=== PATIENT | male | born 1950 | race African-American/Black ===

== ENCOUNTER 2023-07-20 12:01 | Inpatient (IN) | payer OTHER ==
[~2023-07-20] VITALS: Ht 175.3 cm; Wt 53.0 kg
[2023-07-20] MEDS ORDERED: SODIUM CHLORIDE 0.9% 1,000 ML IV ONE (12:15)
[2023-07-20 13:24] LABS: Basophils # (auto) 0 10 ^3/uL (0-0.2); Basophils % (auto) 0.4 % (0.0-2.0); Eosinophils # (auto) 0 10 ^3/uL (0-0.8); Eosinophils % (auto) 0.5 % (0.0-7.0); Hematocrit 35.8 % (41.0-53.0); Hemoglobin 11.4 g/dL (13.5-17.5); Lymphocytes # (auto) 1.7 10 ^3/uL (0.4-5.4); Lymphocytes % (auto) 26.9 % (10.0-50.0); Mean Corpuscular Hemoglobin 31.7 pg (28.0-32.0); Mean Corpuscular Hgb Conc. 31.9 g/dL (32.0-36.0); Mean Corpuscular Volume 99.5 fL (80.0-100.0); Monocytes # (auto) 0.5 10 ^3/uL (0-1.3); Monocytes % (auto) 7.7 % (0.0-12.0); Neutrophils # (auto) 4.2 10 ^3/uL (1.6-8.6); Neutrophils % (auto) 64.5 % (37.0-80.0); Nucleated Red Blood Cells % 0.2 %; Red Cell Distribution Width 16.9 % (11.8-14.3); White Blood Cell 6.5 10^3/uL (4.4-10.8)
[2023-07-20 13:40] LABS: Alanine Aminotransferase 69 U/L (7-40); Albumin 3.4 g/dL (3.2-4.8); Alkaline Phosphatase 131 U/L (46-116); Anion Gap 8 (5-15); Aspartate Aminotransferase 47 U/L (13-40); BUN/Creatinine Ratio 26.4 (10.0-20.0); Blood Urea Nitrogen 19 mg/dL (9-23); Calcium 8.8 mg/dL (8.7-10.4); Carbon Dioxide 24 mmol/L (20-30); Chloride 104 mmol/L (98-107); Glucose 92 mg/dL (74-106); Lipase 33 U/L (12-53); Magnesium 1.9 mg/dL (1.6-2.6); Potassium 3.7 mmol/L (3.5-5.1); Sodium 136 mmol/L (136-145)
[2023-07-20 13:41] LABS: Bilirubin, Total 0.2 mg/dL (0.2-1.0); Total Protein 6.1 g/dL (5.7-8.2)
[2023-07-20] MEDS ORDERED: FUROSEMIDE 40 MG/4 ML VIAL IV ONE (15:00)
[2023-07-20] MEDS ORDERED: SERT-160 (15:42)
[2023-07-20] MEDS ORDERED: TRAZ-227 PO (15:42)
[2023-07-20] MEDS ORDERED: AMLO1TAB23 PO (15:42)
[2023-07-20] MEDS ORDERED: CLOP75TA70 PO (15:42)
[2023-07-20] MEDS ORDERED: CARV12.544 PO (15:42)
[2023-07-20] MEDS ORDERED: FOLI-119 PO (15:42)
[2023-07-20] MEDS ORDERED: HYDR12.55 PO (15:42)
[2023-07-20] MEDS ORDERED: PHEN1CAP60 PO (15:42)
[2023-07-20] MEDS ORDERED: ASPI81CH59 PO (15:42)
[2023-07-20] MEDS ORDERED: SERT-160 PO (15:42)
[2023-07-20] MEDS ORDERED: ACETAMINOPHEN 325 MG TAB PO PRN (15:45)
[2023-07-20] MEDS ORDERED: PANTOPRAZOLE 40 MG/10 ML VIAL INJ IV ONE (15:45)
[2023-07-20 21:00] VITALS: PULSE 75; RESP 12; O2SAT 98
[2023-07-20] MEDS: PHENYTOIN SODIUM 100 MG CAP PO SCH (22:00)
[2023-07-20] MEDS: ASCORBIC ACID 500 MG TAB PO SCH (23:05)
[2023-07-21] VITALS (7 sets, daily range): BP systolic 123–149; BP diastolic 73–98; PULSE 78–92; RESP 14–23; TEMP 97.6–99; O2SAT 97–100
[2023-07-21 05:38] LABS: Basophils # (auto) 0 10 ^3/uL (0-0.2); Basophils % (auto) 0.5 % (0.0-2.0); Eosinophils # (auto) 0 10 ^3/uL (0-0.8); Eosinophils % (auto) 0.5 % (0.0-7.0); Hematocrit 35.2 % (41.0-53.0); Hemoglobin 11.6 g/dL (13.5-17.5); Lymphocytes % (auto) 17.7 % (10.0-50.0); Mean Corpuscular Hemoglobin 32.1 pg (28.0-32.0); Mean Corpuscular Hgb Conc. 32.9 g/dL (32.0-36.0); Mean Corpuscular Volume 97.6 fL (80.0-100.0); Monocytes # (auto) 0.4 10 ^3/uL (0-1.3); Monocytes % (auto) 6.9 % (0.0-12.0); Neutrophils # (auto) 4.1 10 ^3/uL (1.6-8.6); Neutrophils % (auto) 74.4 % (37.0-80.0); Nucleated Red Blood Cells % 0.1 %; Red Blood Cells 3.61 10^6/uL (4.5-5.90); Red Cell Distribution Width 16.4 % (11.8-14.3); White Blood Cell 5.6 10^3/uL (4.4-10.8)
[2023-07-21 05:51] LABS: Alanine Aminotransferase 58 U/L (7-40); Albumin 3.4 g/dL (3.2-4.8); Alkaline Phosphatase 123 U/L (46-116); Anion Gap 13 (5-15); Aspartate Aminotransferase 38 U/L (13-40); Blood Urea Nitrogen 11 mg/dL (9-23); Calcium 9.3 mg/dL (8.5-10.1); Carbon Dioxide 19 mmol/L (20-30); Chloride 106 mmol/L (98-107); Glucose 83 mg/dL (74-106); Potassium 3.6 mmol/L (3.5-5.1); Sodium 138 mmol/L (136-145)
[2023-07-21 05:52] LABS: Bilirubin, Total 0.2 mg/dL (0.2-1.0); Total Protein 6.2 g/dL (5.7-8.2)
[2023-07-21] MEDS: PHENYTOIN SODIUM 100 MG CAP PO SCH ×3 (06:00→22:58)
[2023-07-21 07:33] LABS: Urine Bacteria MANY /hpf (None Seen); Urine Blood 3+ /uL (Negative); Urine Clarity CLOUDY (Clear); Urine Color Yellow (Yellow); Urine Mucus FEW (None Seen); Urine Protein, UAD 1+ (Negative); Urine Specific Gravity 1.021 (1.001-1.035); Urine Urobilinogen Normal (Negative); Urine WBC 335 /hpf (0 - 3); Urine WBC Clumps PRESENT /hpf (None Seen); Urine pH 5.5 (5.0-8.0)
[2023-07-21] MEDS ORDERED: ASPIRIN LOW PO SCH (10:00)
[2023-07-21] MEDS: PANTOPRAZOLE 40 MG/10 ML VIAL INJ IV SCH (11:14)
[2023-07-21] MEDS: ZINC SULFATE 220mg CAP or TAB PO SCH (11:15)
[2023-07-21] MEDS: FOLIC ACID 1 MG TAB PO SCH (11:15)
[2023-07-21] MEDS: MULTIPLE VITAMIN TAB PO SCH (11:16)
[2023-07-21] MEDS: CLOPIDOGREL BISULFATE 75 MG TAB PO SCH (11:16)
[2023-07-21] MEDS: SERTRALINE HCL 50 MG TAB PO SCH (11:16)
[2023-07-21] MEDS: ASCORBIC ACID 500 MG TAB PO SCH ×2 (11:16→22:59)
[2023-07-21] MEDS: ENOXAPARIN SOD 40 MG/0.4 ML SYRINGE SC SCH (11:17)
[2023-07-21] MEDS ORDERED: ASPirin-EC 81 mg tab PO ONE (11:20)
[2023-07-21] MEDS ORDERED: cefTRIAXone 1GM/50ML D5W 50 ML IV ONE (13:00)
[2023-07-21] MEDS: METOPROLOL TARTRATE 25 MG TAB PO SCH (22:59)
[2023-07-21] MEDS: SACUBITRIL-VALSARTAN 24mg/26mg TAB PO SCH (22:59)
[2023-07-22 05:28] VITALS: BP 137/89; PULSE 80; RESP 17; TEMP 97.8; O2SAT 100
[2023-07-22] MEDS: EMPAGLIFLOZIN 10 MG TAB PO SCH (06:38)
[2023-07-22] MEDS: PHENYTOIN SODIUM 100 MG CAP PO SCH ×3 (06:38→22:19)
[2023-07-22 08:00] VITALS: PULSE 76; RESP 16
[2023-07-22 10:15] VITALS: BP 130/87; PULSE 76; RESP 16; TEMP 98.3; O2SAT 99
[2023-07-22] MEDS: cefTRIAXone 1GM/50ML D5W 50 ML IV SCH (11:54)
[2023-07-22] MEDS: PANTOPRAZOLE 40 MG/10 ML VIAL INJ IV SCH (11:55)
[2023-07-22] MEDS: ASCORBIC ACID 500 MG TAB PO SCH ×2 (11:55→22:19)
[2023-07-22] MEDS: SERTRALINE HCL 50 MG TAB PO SCH (11:56)
[2023-07-22] MEDS: METOPROLOL TARTRATE 25 MG TAB PO SCH ×2 (11:56→22:19)
[2023-07-22] MEDS: FOLIC ACID 1 MG TAB PO SCH (11:57)
[2023-07-22] MEDS: SACUBITRIL-VALSARTAN 24mg/26mg TAB PO SCH ×2 (11:57→23:33)
[2023-07-22] MEDS: MULTIPLE VITAMIN TAB PO SCH (11:58)
[2023-07-22] MEDS: ASPirin 81 mg TAB PO SCH (11:58)
[2023-07-22] MEDS: ZINC SULFATE 220mg CAP or TAB PO SCH (11:58)
[2023-07-22] MEDS: FUROSEMIDE 20 MG TAB PO SCH (11:59)
[2023-07-22] MEDS: CLOPIDOGREL BISULFATE 75 MG TAB PO SCH (11:59)
[2023-07-22] MEDS: ENOXAPARIN SOD 40 MG/0.4 ML SYRINGE SC SCH (11:59)
[2023-07-22] MEDS: SPIRONOLACTONE 25 MG TAB PO SCH (12:11)
[2023-07-22 13:05] VITALS: BP 148/93; PULSE 85; RESP 17; TEMP 98.3; O2SAT 98
[2023-07-22 20:00] VITALS: BP 124/85; PULSE 72; PULSE 81; TEMP 36.8
[2023-07-22 22:00] VITALS: BP 159/92; PULSE 99; RESP 18; TEMP 98.6; O2SAT 100
[2023-07-23] MEDS: PHENYTOIN SODIUM 100 MG CAP PO SCH ×3 (06:48→22:05)
[2023-07-23] MEDS: EMPAGLIFLOZIN 10 MG TAB PO SCH (06:48)
[2023-07-23 08:00] VITALS: BP 145/90; PULSE 85; RESP 20; TEMP 98.4; O2SAT 100
[2023-07-23] MEDS: cefTRIAXone 1GM/50ML D5W 50 ML IV SCH (08:05)
[2023-07-23] MEDS: FUROSEMIDE 20 MG TAB PO SCH (10:00)
[2023-07-23] MEDS: METOPROLOL TARTRATE 25 MG TAB PO SCH ×2 (11:33→22:05)
[2023-07-23] MEDS: ASPirin 81 mg TAB PO SCH (11:33)
[2023-07-23] MEDS: ZINC SULFATE 220mg CAP or TAB PO SCH (11:34)
[2023-07-23] MEDS: SACUBITRIL-VALSARTAN 24mg/26mg TAB PO SCH ×2 (11:34→22:05)
[2023-07-23] MEDS: MULTIPLE VITAMIN TAB PO SCH (11:35)
[2023-07-23] MEDS: ASCORBIC ACID 500 MG TAB PO SCH ×2 (11:35→22:05)
[2023-07-23] MEDS: FOLIC ACID 1 MG TAB PO SCH (11:36)
[2023-07-23] MEDS: SPIRONOLACTONE 25 MG TAB PO SCH (11:36)
[2023-07-23] MEDS: SERTRALINE HCL 50 MG TAB PO SCH (11:37)
[2023-07-23] MEDS: PANTOPRAZOLE 40 MG/10 ML VIAL INJ IV SCH (11:38)
[2023-07-23] MEDS: CLOPIDOGREL BISULFATE 75 MG TAB PO SCH (11:38)
[2023-07-23] MEDS: ENOXAPARIN SOD 40 MG/0.4 ML SYRINGE SC SCH (11:39)
[2023-07-23] MEDS: Ensure HIGH Protein Vanilla 8oz Bottle PO SCH ×2 (12:00→18:00)
[2023-07-23 13:00] VITALS: BP 126/89; PULSE 93; RESP 20; TEMP 98.5; O2SAT 100
[2023-07-23 16:54] VITALS: BP 143/95; PULSE 100; RESP 20; TEMP 98.4; O2SAT 92
[2023-07-23 21:42] VITALS: BP 145/87; PULSE 91; RESP 19; TEMP 97.8; O2SAT 94
[2023-07-23 21:49] VITALS: BP 155/90; PULSE 92; RESP 18; TEMP 98.3; O2SAT 100
[2023-07-23] MEDS ORDERED: SACUBITRIL-VALSARTAN 24mg/26mg TAB PO ONE (22:02)
[2023-07-24 05:00] VITALS: BP 148/77; PULSE 82; RESP 19; TEMP 98.5; O2SAT 94
[2023-07-24] MEDS: PHENYTOIN SODIUM 100 MG CAP PO SCH ×3 (06:34→21:35)
[2023-07-24] MEDS: EMPAGLIFLOZIN 10 MG TAB PO SCH (06:35)
[2023-07-24] MEDS: Ensure HIGH Protein Vanilla 8oz Bottle PO SCH ×3 (08:00→18:00)
[2023-07-24 09:00] VITALS: BP 137/96; PULSE 82; RESP 18; TEMP 98.3; O2SAT 100
[2023-07-24] MEDS: cefTRIAXone 1GM/50ML D5W 50 ML IV SCH (09:00)
[2023-07-24] MEDS: METOPROLOL TARTRATE 25 MG TAB PO SCH ×2 (10:00→21:35)
[2023-07-24] MEDS: ENOXAPARIN SOD 40 MG/0.4 ML SYRINGE SC SCH (10:00)
[2023-07-24] MEDS: FOLIC ACID 1 MG TAB PO SCH (10:00)
[2023-07-24] MEDS: FUROSEMIDE 20 MG TAB PO SCH (10:00)
[2023-07-24] MEDS: ASCORBIC ACID 500 MG TAB PO SCH ×2 (10:00→21:35)
[2023-07-24] MEDS: SACUBITRIL-VALSARTAN 24mg/26mg TAB PO SCH ×2 (10:00→21:35)
[2023-07-24] MEDS: MULTIPLE VITAMIN TAB PO SCH (10:00)
[2023-07-24] MEDS: CLOPIDOGREL BISULFATE 75 MG TAB PO SCH (10:00)
[2023-07-24] MEDS: SPIRONOLACTONE 25 MG TAB PO SCH (10:00)
[2023-07-24] MEDS: SERTRALINE HCL 50 MG TAB PO SCH (10:00)
[2023-07-24] MEDS: ASPirin 81 mg TAB PO SCH (10:00)
[2023-07-24] MEDS: ZINC SULFATE 220mg CAP or TAB PO SCH (10:00)
[2023-07-24] MEDS: PANTOPRAZOLE 40 MG/10 ML VIAL INJ IV SCH (10:00)
[2023-07-24 10:25] LABS: Hepatitis B Surface Antigen Negative (Negative)
[2023-07-24 10:45] LABS: Hepatitis A Ab IgM Negative
[2023-07-24 10:46] LABS: Hepatitis B Core IgM Negative
[2023-07-24 10:47] LABS: Hepatitis C Antibody Negative (Negative)
[2023-07-24 13:00] VITALS: BP 120/80; PULSE 93; RESP 18; TEMP 99; O2SAT 99
[2023-07-24 17:00] VITALS: BP 144/88; PULSE 83; RESP 18; TEMP 98.6; O2SAT 100
[2023-07-24 19:40] VITALS: PULSE 80
[2023-07-24 22:00] VITALS: BP 108/75; PULSE 90; RESP 18; TEMP 97.7; O2SAT 95
[2023-07-25 05:00] VITALS: BP 129/77; PULSE 79; RESP 16; TEMP 98.1; O2SAT 98
[2023-07-25] MEDS: EMPAGLIFLOZIN 10 MG TAB PO SCH (06:08)
[2023-07-25] MEDS: PHENYTOIN SODIUM 100 MG CAP PO SCH ×3 (06:08→21:09)
[2023-07-25] MEDS: Ensure HIGH Protein Vanilla 8oz Bottle PO SCH ×3 (08:18→18:00)
[2023-07-25] MEDS: cefTRIAXone 1GM/50ML D5W 50 ML IV SCH (08:18)
[2023-07-25 09:00] VITALS: BP 108/76; PULSE 78; RESP 19; TEMP 98.8; O2SAT 96
[2023-07-25] MEDS: ENOXAPARIN SOD 40 MG/0.4 ML SYRINGE SC SCH (10:00)
[2023-07-25] MEDS: SPIRONOLACTONE 25 MG TAB PO SCH (10:00)
[2023-07-25] MEDS: MULTIPLE VITAMIN TAB PO SCH (10:00)
[2023-07-25] MEDS: CLOPIDOGREL BISULFATE 75 MG TAB PO SCH (10:00)
[2023-07-25] MEDS: SACUBITRIL-VALSARTAN 24mg/26mg TAB PO SCH ×2 (10:00→21:09)
[2023-07-25] MEDS: ASCORBIC ACID 500 MG TAB PO SCH ×2 (10:00→21:09)
[2023-07-25] MEDS: METOPROLOL TARTRATE 25 MG TAB PO SCH ×2 (10:00→21:09)
[2023-07-25] MEDS: ZINC SULFATE 220mg CAP or TAB PO SCH (10:00)
[2023-07-25] MEDS: PANTOPRAZOLE 40 MG/10 ML VIAL INJ IV SCH (10:00)
[2023-07-25] MEDS: FUROSEMIDE 20 MG TAB PO SCH (10:00)
[2023-07-25] MEDS: SERTRALINE HCL 50 MG TAB PO SCH (10:00)
[2023-07-25] MEDS: ASPirin 81 mg TAB PO SCH (10:00)
[2023-07-25] MEDS: FOLIC ACID 1 MG TAB PO SCH (10:00)
[2023-07-25 13:00] VITALS: BP 108/72; PULSE 78; RESP 18; TEMP 98.4; O2SAT 100
[2023-07-25] MEDS: MEROPENEM 1GM IVPB 100 ML IV SCH ×2 (14:07→23:02)
[2023-07-25 17:00] VITALS: BP 110/77; PULSE 79; RESP 18; TEMP 98.4; O2SAT 94
[2023-07-25 20:00] VITALS: PULSE 80
[2023-07-25] MEDS: LINEZOLID 600MG/300ML 300 ML IV SCH (21:08)
[2023-07-25 22:00] VITALS: BP 99/62; PULSE 93; RESP 14; TEMP 99; O2SAT 98
[2023-07-26] VITALS (7 sets, daily range): BP systolic 106–118; BP diastolic 68–79; PULSE 75–101; RESP 14–19; TEMP 97.9–98.9; O2SAT 94–98
[2023-07-26] MEDS: MEROPENEM 1GM IVPB 100 ML IV SCH ×2 (06:23→15:45)
[2023-07-26] MEDS: EMPAGLIFLOZIN 10 MG TAB PO SCH (06:23)
[2023-07-26] MEDS: PHENYTOIN SODIUM 100 MG CAP PO SCH ×3 (06:23→21:54)
[2023-07-26] MEDS: Ensure HIGH Protein Vanilla 8oz Bottle PO SCH ×3 (08:30→18:38)
[2023-07-26] MEDS: SERTRALINE HCL 50 MG TAB PO SCH (10:01)
[2023-07-26] MEDS: FOLIC ACID 1 MG TAB PO SCH (10:01)
[2023-07-26] MEDS: ENOXAPARIN SOD 40 MG/0.4 ML SYRINGE SC SCH (10:01)
[2023-07-26] MEDS: LINEZOLID 600MG/300ML 300 ML IV SCH ×2 (10:01→21:31)
[2023-07-26] MEDS: PANTOPRAZOLE 40 MG/10 ML VIAL INJ IV SCH (10:01)
[2023-07-26] MEDS: ASPirin 81 mg TAB PO SCH (10:01)
[2023-07-26] MEDS: ZINC SULFATE 220mg CAP or TAB PO SCH (10:01)
[2023-07-26] MEDS: FUROSEMIDE 20 MG TAB PO SCH (10:02)
[2023-07-26] MEDS: SACUBITRIL-VALSARTAN 24mg/26mg TAB PO SCH ×2 (10:02→21:31)
[2023-07-26] MEDS: CLOPIDOGREL BISULFATE 75 MG TAB PO SCH (10:02)
[2023-07-26] MEDS: ASCORBIC ACID 500 MG TAB PO SCH ×2 (10:02→21:30)
[2023-07-26] MEDS: MULTIPLE VITAMIN TAB PO SCH (10:02)
[2023-07-26] MEDS: METOPROLOL TARTRATE 25 MG TAB PO SCH ×2 (10:03→21:31)
[2023-07-26] MEDS: SPIRONOLACTONE 25 MG TAB PO SCH (10:14)
[2023-07-26] MEDS ORDERED: CATHFLO ACTIVASE (ALTEPLASE) 2 MG VIAL IV ONE (11:00)
[2023-07-26 14:54] LABS: COVID19 ANTIGEN SOFIA FIA NEGATIVE (NEGATIVE)
[2023-07-27] VITALS (7 sets, daily range): BP systolic 105–120; BP diastolic 68–82; PULSE 73–110; RESP 14–22; TEMP 97.9–99; O2SAT 94–98
[2023-07-27] MEDS: MEROPENEM 1GM IVPB 100 ML IV SCH ×4 (00:37→23:29)
[2023-07-27] MEDS: EMPAGLIFLOZIN 10 MG TAB PO SCH (06:30)
[2023-07-27] MEDS: PHENYTOIN SODIUM 100 MG CAP PO SCH ×3 (06:30→22:00)
[2023-07-27] MEDS: Ensure HIGH Protein Vanilla 8oz Bottle PO SCH ×3 (08:00→18:17)
[2023-07-27] MEDS: ZINC SULFATE 220mg CAP or TAB PO SCH (10:00)
[2023-07-27] MEDS: SERTRALINE HCL 50 MG TAB PO SCH (10:00)
[2023-07-27] MEDS: ENOXAPARIN SOD 40 MG/0.4 ML SYRINGE SC SCH (10:00)
[2023-07-27] MEDS: MULTIPLE VITAMIN TAB PO SCH (10:00)
[2023-07-27] MEDS: METOPROLOL TARTRATE 25 MG TAB PO SCH ×2 (10:00→22:00)
[2023-07-27] MEDS: SPIRONOLACTONE 25 MG TAB PO SCH (10:00)
[2023-07-27] MEDS: SACUBITRIL-VALSARTAN 24mg/26mg TAB PO SCH ×2 (10:00→22:00)
[2023-07-27] MEDS: FOLIC ACID 1 MG TAB PO SCH (10:00)
[2023-07-27] MEDS: ASPirin 81 mg TAB PO SCH (10:00)
[2023-07-27] MEDS: ASCORBIC ACID 500 MG TAB PO SCH ×2 (10:00→22:00)
[2023-07-27] MEDS: CLOPIDOGREL BISULFATE 75 MG TAB PO SCH (10:00)
[2023-07-27] MEDS: FUROSEMIDE 20 MG TAB PO SCH (10:00)
[2023-07-27] MEDS: PANTOPRAZOLE 40 MG/10 ML VIAL INJ IV SCH (10:39)
[2023-07-27] MEDS: LINEZOLID 600MG/300ML 300 ML IV SCH ×2 (10:42→21:13)
[2023-07-28 05:00] VITALS: BP 113/74; PULSE 99; RESP 20; TEMP 98; O2SAT 100
[2023-07-28] MEDS: MEROPENEM 1GM IVPB 100 ML IV SCH ×3 (06:06→22:30)
[2023-07-28] MEDS: PHENYTOIN SODIUM 100 MG CAP PO SCH ×3 (06:07→22:00)
[2023-07-28] MEDS: EMPAGLIFLOZIN 10 MG TAB PO SCH ×2 (07:00→07:01)
[2023-07-28] MEDS: Ensure HIGH Protein Vanilla 8oz Bottle PO SCH ×2 (08:00→12:00)
[2023-07-28 09:00] VITALS: BP 116/73; PULSE 94; RESP 18; TEMP 98.2; O2SAT 99
[2023-07-28] MEDS: METOPROLOL TARTRATE 25 MG TAB PO SCH ×2 (10:00→22:36)
[2023-07-28] MEDS: SPIRONOLACTONE 25 MG TAB PO SCH (10:00)
[2023-07-28] MEDS: SACUBITRIL-VALSARTAN 24mg/26mg TAB PO SCH ×2 (10:00→21:59)
[2023-07-28] MEDS: ZINC SULFATE 220mg CAP or TAB PO SCH (10:00)
[2023-07-28] MEDS: ASCORBIC ACID 500 MG TAB PO SCH ×2 (10:00→22:00)
[2023-07-28] MEDS: ASPirin 81 mg TAB PO SCH (10:00)
[2023-07-28] MEDS: CLOPIDOGREL BISULFATE 75 MG TAB PO SCH (10:00)
[2023-07-28] MEDS: MULTIPLE VITAMIN TAB PO SCH (10:00)
[2023-07-28] MEDS: FOLIC ACID 1 MG TAB PO SCH (10:00)
[2023-07-28] MEDS: FUROSEMIDE 20 MG TAB PO SCH (10:00)
[2023-07-28] MEDS: SERTRALINE HCL 50 MG TAB PO SCH (10:00)
[2023-07-28] MEDS: PANTOPRAZOLE 40 MG/10 ML VIAL INJ IV SCH (10:24)
[2023-07-28] MEDS: ENOXAPARIN SOD 40 MG/0.4 ML SYRINGE SC SCH (10:25)
[2023-07-28] MEDS: LINEZOLID 600MG/300ML 300 ML IV SCH ×2 (10:25→21:53)
[2023-07-28 11:33] LABS: Alanine Aminotransferase 31 U/L (7-40); Albumin 2.9 g/dL (3.2-4.8); Alkaline Phosphatase 101 U/L (46-116); Anion Gap 5 (5-15); Aspartate Aminotransferase 21 U/L (13-40); BUN/Creatinine Ratio 10.5 (10.0-20.0); Bilirubin, Total 0.2 mg/dL (0.2-1.0); Blood Urea Nitrogen 6 mg/dL (9-23); Carbon Dioxide 26 mmol/L (20-30); Chloride 106 mmol/L (98-107); Glucose 89 mg/dL (74-106); Sodium 137 mmol/L (136-145); Total Protein 5.5 g/dL (5.7-8.2)
[2023-07-28 13:00] VITALS: BP 107/63; PULSE 102; RESP 18; TEMP 98.4; O2SAT 99
[2023-07-28 17:00] VITALS: BP 113/74; PULSE 103; RESP 18; TEMP 98.2; O2SAT 99
[2023-07-28 22:00] VITALS: BP 128/82; PULSE 115; RESP 14; TEMP 98.2; O2SAT 99
[2023-07-28] MEDS: PHENYTOIN 100 MG/4 ML SUSP PO SCH (23:28)
[2023-07-29] VITALS (8 sets, daily range): BP systolic 97–129; BP diastolic 60–86; PULSE 74–92; RESP 15–21; TEMP 98–99.4; O2SAT 95–99
[2023-07-29] MEDS: MEROPENEM 1GM IVPB 100 ML IV SCH ×3 (05:22→22:13)
[2023-07-29] MEDS: PHENYTOIN 100 MG/4 ML SUSP PO SCH ×3 (05:57→22:06)
[2023-07-29] MEDS ORDERED: PHENYTOIN SODIUM 100 MG CAP PO SCH (06:00)
[2023-07-29] MEDS: EMPAGLIFLOZIN 10 MG TAB PO SCH (06:40)
[2023-07-29] MEDS: Ensure HIGH Protein Vanilla 8oz Bottle PO SCH ×4 (07:24→18:14)
[2023-07-29 08:38] LABS: Basophils # (auto) 0 10 ^3/uL (0-0.2); Basophils % (auto) 0.2 % (0.0-2.0); Eosinophils # (auto) 0.1 10 ^3/uL (0-0.8); Eosinophils % (auto) 2.5 % (0.0-7.0); Hematocrit 35.6 % (41.0-53.0); Lymphocytes # (auto) 1.7 10 ^3/uL (0.4-5.4); Lymphocytes % (auto) 29.2 % (10.0-50.0); Mean Corpuscular Hemoglobin 30.1 pg (28.0-32.0); Monocytes # (auto) 0.5 10 ^3/uL (0-1.3); Monocytes % (auto) 8.7 % (0.0-12.0); Neutrophils # (auto) 3.4 10 ^3/uL (1.6-8.6); Neutrophils % (auto) 59.4 % (37.0-80.0); Nucleated Red Blood Cells % 0.1 %; Red Blood Cells 3.67 10^6/uL (4.5-5.90); Red Cell Distribution Width 16.6 % (11.8-14.3); White Blood Cell 5.8 10^3/uL (4.4-10.8)
[2023-07-29] MEDS: LINEZOLID 600MG/300ML 300 ML IV SCH ×2 (10:31→22:13)
[2023-07-29] MEDS: ENOXAPARIN SOD 40 MG/0.4 ML SYRINGE SC SCH (10:33)
[2023-07-29] MEDS: PANTOPRAZOLE 40 MG/10 ML VIAL INJ IV SCH (10:33)
[2023-07-29] MEDS: SPIRONOLACTONE 25 MG TAB PO SCH (10:34)
[2023-07-29] MEDS: FUROSEMIDE 20 MG TAB PO SCH (10:34)
[2023-07-29] MEDS: SERTRALINE HCL 50 MG TAB PO SCH (10:35)
[2023-07-29] MEDS: MULTIPLE VITAMIN TAB PO SCH (10:35)
[2023-07-29] MEDS: ASPirin 81 mg TAB PO SCH (10:35)
[2023-07-29] MEDS: SACUBITRIL-VALSARTAN 24mg/26mg TAB PO SCH ×2 (10:35→21:58)
[2023-07-29] MEDS: FOLIC ACID 1 MG TAB PO SCH (10:36)
[2023-07-29] MEDS: CLOPIDOGREL BISULFATE 75 MG TAB PO SCH (10:36)
[2023-07-29] MEDS: ZINC SULFATE 220mg CAP or TAB PO SCH (10:37)
[2023-07-29] MEDS: ASCORBIC ACID 500 MG TAB PO SCH ×2 (10:37→21:58)
[2023-07-29] MEDS: METOPROLOL TARTRATE 25 MG TAB PO SCH ×2 (10:37→21:59)
[2023-07-30 05:00] VITALS: BP 113/74; PULSE 74; RESP 18; TEMP 97.4; O2SAT 100
[2023-07-30] MEDS: MEROPENEM 1GM IVPB 100 ML IV SCH ×3 (05:26→22:14)
[2023-07-30] MEDS: PHENYTOIN 100 MG/4 ML SUSP PO SCH ×3 (05:26→22:15)
[2023-07-30] MEDS: EMPAGLIFLOZIN 10 MG TAB PO SCH (06:06)
[2023-07-30 07:55] VITALS: PULSE 82
[2023-07-30] MEDS: Ensure HIGH Protein Vanilla 8oz Bottle PO SCH ×3 (08:00→17:39)
[2023-07-30 08:30] VITALS: BP 106/76; PULSE 82; RESP 16; TEMP 98.7; O2SAT 100
[2023-07-30] MEDS: METOPROLOL TARTRATE 25 MG TAB PO SCH ×2 (10:00→22:33)
[2023-07-30] MEDS: LINEZOLID 600MG/300ML 300 ML IV SCH ×2 (10:37→22:10)
[2023-07-30] MEDS: PANTOPRAZOLE 40 MG/10 ML VIAL INJ IV SCH (10:42)
[2023-07-30] MEDS: ENOXAPARIN SOD 40 MG/0.4 ML SYRINGE SC SCH (10:43)
[2023-07-30] MEDS: FUROSEMIDE 20 MG TAB PO SCH (10:43)
[2023-07-30] MEDS: ASCORBIC ACID 500 MG TAB PO SCH ×2 (10:43→22:15)
[2023-07-30] MEDS: ZINC SULFATE 220mg CAP or TAB PO SCH (10:43)
[2023-07-30] MEDS: ASPirin 81 mg TAB PO SCH (10:43)
[2023-07-30] MEDS: MULTIPLE VITAMIN TAB PO SCH (10:43)
[2023-07-30] MEDS: SERTRALINE HCL 50 MG TAB PO SCH (10:43)
[2023-07-30] MEDS: FOLIC ACID 1 MG TAB PO SCH (10:44)
[2023-07-30] MEDS: CLOPIDOGREL BISULFATE 75 MG TAB PO SCH (10:44)
[2023-07-30] MEDS: SPIRONOLACTONE 25 MG TAB PO SCH (10:44)
[2023-07-30] MEDS: SACUBITRIL-VALSARTAN 24mg/26mg TAB PO SCH ×2 (10:44→22:15)
[2023-07-30 13:00] VITALS: BP 142/75; PULSE 79; RESP 17; TEMP 98.3; O2SAT 98
[2023-07-30 17:10] VITALS: BP 122/79; PULSE 91; RESP 16; TEMP 97.6; O2SAT 98
[2023-07-30 22:00] VITALS: BP_SYST 118; BP_SYST 120; BP_DIAS 78; BP_DIAS 81; PULSE 120; PULSE 83; RESP 18; RESP 20; TEMP 98.1; TEMP 98.5; O2SAT 94; O2SAT 99
[2023-07-31 05:13] VITALS: BP 117/77; PULSE 80; RESP 18; TEMP 98.1; O2SAT 98
[2023-07-31] MEDS: MEROPENEM 1GM IVPB 100 ML IV SCH ×2 (05:22→13:47)
[2023-07-31] MEDS: PHENYTOIN 100 MG/4 ML SUSP PO SCH ×3 (05:25→21:46)
[2023-07-31] MEDS: EMPAGLIFLOZIN 10 MG TAB PO SCH (06:28)
[2023-07-31 09:00] VITALS: BP 103/65; PULSE 81; RESP 14; TEMP 97.9; O2SAT 100
[2023-07-31] MEDS: LINEZOLID 600MG/300ML 300 ML IV SCH ×2 (09:00→21:46)
[2023-07-31] MEDS: Ensure HIGH Protein Vanilla 8oz Bottle PO SCH ×3 (09:00→18:18)
[2023-07-31] MEDS: PANTOPRAZOLE 40 MG/10 ML VIAL INJ IV SCH (09:01)
[2023-07-31] MEDS: ASPirin 81 mg TAB PO SCH (09:01)
[2023-07-31] MEDS: ZINC SULFATE 220mg CAP or TAB PO SCH (09:01)
[2023-07-31] MEDS: FOLIC ACID 1 MG TAB PO SCH (09:02)
[2023-07-31] MEDS: SACUBITRIL-VALSARTAN 24mg/26mg TAB PO SCH ×2 (09:02→21:46)
[2023-07-31] MEDS: ASCORBIC ACID 500 MG TAB PO SCH ×2 (09:02→21:46)
[2023-07-31] MEDS: FUROSEMIDE 20 MG TAB PO SCH (09:02)
[2023-07-31] MEDS: SERTRALINE HCL 50 MG TAB PO SCH (09:02)
[2023-07-31] MEDS: MULTIPLE VITAMIN TAB PO SCH (09:02)
[2023-07-31] MEDS: SPIRONOLACTONE 25 MG TAB PO SCH (09:03)
[2023-07-31] MEDS: CLOPIDOGREL BISULFATE 75 MG TAB PO SCH (09:03)
[2023-07-31] MEDS: METOPROLOL TARTRATE 25 MG TAB PO SCH ×2 (09:03→21:47)
[2023-07-31 12:36] VITALS: BP 108/64; PULSE 78; RESP 16; TEMP 98.8; O2SAT 94
[2023-07-31] MEDS: ENOXAPARIN SOD 40 MG/0.4 ML SYRINGE SC SCH (13:31)
[2023-07-31] MEDS ORDERED: levoFLOXacin 750MG 150 ML IV ONE (15:00)
[2023-07-31 17:00] VITALS: BP 104/64; PULSE 78; RESP 16; TEMP 98.8; O2SAT 93
[2023-07-31 22:00] VITALS: BP 106/63; PULSE 84; RESP 15; TEMP 97.6; O2SAT 95
[2023-08-01 05:02] VITALS: BP 120/71; PULSE 83; RESP 16; TEMP 97.5; O2SAT 99
[2023-08-01] MEDS: PHENYTOIN 100 MG/4 ML SUSP PO SCH ×3 (06:38→22:00)
[2023-08-01] MEDS: EMPAGLIFLOZIN 10 MG TAB PO SCH (06:39)
[2023-08-01 09:00] VITALS: BP 103/69; PULSE 80; RESP 18; TEMP 98.2; O2SAT 96
[2023-08-01] MEDS: levoFLOXacin 750MG 150 ML IV SCH (09:46)
[2023-08-01] MEDS: LINEZOLID 600MG/300ML 300 ML IV SCH ×2 (09:46→22:14)
[2023-08-01] MEDS: Ensure HIGH Protein Vanilla 8oz Bottle PO SCH ×3 (09:46→17:57)
[2023-08-01] MEDS: ENOXAPARIN SOD 40 MG/0.4 ML SYRINGE SC SCH (09:47)
[2023-08-01] MEDS: ZINC SULFATE 220mg CAP or TAB PO SCH (09:47)
[2023-08-01] MEDS: ASCORBIC ACID 500 MG TAB PO SCH ×2 (09:48→22:00)
[2023-08-01] MEDS: SERTRALINE HCL 50 MG TAB PO SCH (09:48)
[2023-08-01] MEDS: FUROSEMIDE 20 MG TAB PO SCH (09:49)
[2023-08-01] MEDS: ASPirin 81 mg TAB PO SCH (10:25)
[2023-08-01] MEDS: SACUBITRIL-VALSARTAN 24mg/26mg TAB PO SCH ×2 (10:25→22:00)
[2023-08-01] MEDS: FOLIC ACID 1 MG TAB PO SCH (10:25)
[2023-08-01] MEDS: MULTIPLE VITAMIN TAB PO SCH (10:27)
[2023-08-01] MEDS: METOPROLOL TARTRATE 25 MG TAB PO SCH ×2 (10:27→22:00)
[2023-08-01] MEDS: CLOPIDOGREL BISULFATE 75 MG TAB PO SCH (10:27)
[2023-08-01] MEDS: SPIRONOLACTONE 25 MG TAB PO SCH (10:27)
[2023-08-01 13:00] VITALS: BP 104/67; PULSE 81; RESP 18; TEMP 97.8; O2SAT 95
[2023-08-01 17:00] VITALS: BP 87/50; PULSE 82; RESP 17; TEMP 97.6; O2SAT 99
[2023-08-01 20:00] VITALS: BP 113/69; PULSE 76; RESP 16; TEMP 98.1; O2SAT 95
[2023-08-01 22:00] VITALS: BP 113/69; PULSE 76; RESP 16; TEMP 98.1; O2SAT 95
[2023-08-02 05:00] VITALS: BP 96/63; PULSE 77; RESP 16; TEMP 97.9; O2SAT 96
[2023-08-02] MEDS: PHENYTOIN 100 MG/4 ML SUSP PO SCH (06:00)
[2023-08-02] MEDS: EMPAGLIFLOZIN 10 MG TAB PO SCH (06:29)
[2023-08-02 08:00] VITALS: PULSE 84; RESP 20; O2SAT 96
[2023-08-02 09:24] VITALS: BP 101/66; PULSE 84; RESP 20; TEMP 99.5; O2SAT 96
[2023-08-02] MEDS: Ensure HIGH Protein Vanilla 8oz Bottle PO SCH ×2 (09:55→12:10)
[2023-08-02] MEDS: FOLIC ACID 1 MG TAB PO SCH (09:56)
[2023-08-02] MEDS: ZINC SULFATE 220mg CAP or TAB PO SCH (09:56)
[2023-08-02] MEDS: ASPirin 81 mg TAB PO SCH (09:56)
[2023-08-02] MEDS: FUROSEMIDE 20 MG TAB PO SCH (09:56)
[2023-08-02] MEDS: MULTIPLE VITAMIN TAB PO SCH (09:56)
[2023-08-02] MEDS: SACUBITRIL-VALSARTAN 24mg/26mg TAB PO SCH (09:56)
[2023-08-02] MEDS: ASCORBIC ACID 500 MG TAB PO SCH (09:56)
[2023-08-02] MEDS: CLOPIDOGREL BISULFATE 75 MG TAB PO SCH (09:56)
[2023-08-02] MEDS: SERTRALINE HCL 50 MG TAB PO SCH (09:56)
[2023-08-02] MEDS: SPIRONOLACTONE 25 MG TAB PO SCH (09:57)
[2023-08-02] MEDS: levoFLOXacin 750MG 150 ML IV SCH (09:57)
[2023-08-02] MEDS: METOPROLOL TARTRATE 25 MG TAB PO SCH (09:57)
[2023-08-02] MEDS: LINEZOLID 600MG/300ML 300 ML IV SCH (12:10)
[2023-08-02 12:26] VITALS: BP 114/67; PULSE 83; RESP 20; TEMP 99.8; O2SAT 100
== END 2023-08-02 13:19 | DRG 640 ==
LOC: EDBD 12:01 → ER 12:01 → OVERFLOW 15:39 → WEST WING 07-21 09:28
PROVIDERS: ADMIT Nurse Practitioner Family; ATTEND Family Medicine
PROC: 05H933Z Insertion of Infusion Device into Right Brachial Vein, Percutaneous Approach (ICD-10-PCS; 2023-07-24)
PROC: B54MZZA Ultrasonography of Right Upper Extremity Veins, Guidance (ICD-10-PCS; 2023-07-24)
PROC: 05HY33Z Insertion of Infusion Device into Upper Vein, Percutaneous Approach (ICD-10-PCS; principal; 2023-07-29)
DX: R62.7 Adult failure to thrive (principal); E43 Unspecified severe protein-calorie malnutrition; I21.4 Non-ST elevation (NSTEMI) myocardial infarction; I50.43 Acute on chronic combined systolic (congestive) and diastolic (congestive) heart failure; N39.0 Urinary tract infection, site not specified; Z68.1 Body mass index [BMI] 19.9 or less, adult; F03.C3 Unspecified dementia, severe, with mood disturbance; I11.0 Hypertensive heart disease with heart failure; Z20.822 Contact with and (suspected) exposure to COVID-19; B96.5 Pseudomonas (aeruginosa) (mallei) (pseudomallei) as the cause of diseases classified elsewhere; E86.0 Dehydration; R74.01 Elevation of levels of liver transaminase levels; B96.20 Unspecified Escherichia coli [E. coli] as the cause of diseases classified elsewhere; K80.20 Calculus of gallbladder without cholecystitis without obstruction; Z66 Do not resuscitate; F32.A Depression, unspecified; B96.4 Proteus (mirabilis) (morganii) as the cause of diseases classified elsewhere; L89.150 Pressure ulcer of sacral region, unstageable; G40.909 Epilepsy, unspecified, not intractable, without status epilepticus; Z85.528 Personal history of other malignant neoplasm of kidney; Z74.01 Bed confinement status; Z86.12 Personal history of poliomyelitis; Z79.02 Long term (current) use of antithrombotics/antiplatelets; Z79.82 Long term (current) use of aspirin; Z86.73 Personal history of transient ischemic attack (TIA), and cerebral infarction without residual deficits; Z90.5 Acquired absence of kidney; Z95.1 Presence of aortocoronary bypass graft
CPT/HCPCS: 36415; 74018; 76700; 80053; 80074; 80185; 81001; 83605; 83690; 83735; 83880; 84100; 84443; 84484; 85025; 87040; 87077; 87081; 87086; 87088; 87186; 87205; 87426; 92610; 93005; 93306; 97163; C9113; G0378; J1956; J2185